=== PATIENT | male | born 1970 | race Hispanic/Latino ===

== ENCOUNTER 2025-08-16 06:24 | Emergency (ER) | payer OTHER ==
[2025-08-16 06:57] LABS: #Basophils 0.05 10x3/uL (0.0-0.2); #Eosinophils 0.13 10x3/uL (0.0-0.5); #Monocytes 0.75 10x3/uL (0.0-1.1); #Neutrophils 5.66 10x3/uL (1.5-8.4); %Basophils 0.7 % (0.0-2.0); %Eosinophils 1.8 % (0.0-6.0); %Lymphocytes 10.6 % (18.0-47.0); %Monocytes 10.1 % (0.0-10.0); %Neutrophils 76.3 % (40.0-75.0); Hematocrit 21.5 % (38.8-50.0); Hemoglobin 6.9 g/dL (13.5-17.5); Mean Corpuscular Hemoglobin 31.7 pg (27.0-33.0); Mean Corpuscular Volume 98.6 fL (81.2-95.1); Platelet Count 199 10x3/uL (150-450); Red Blood Cell (RBC) Count 2.18 10x6/uL (4.32-5.72); White Blood Cell (WBC) Count 7.42 10x3/uL (3.5-10.5)
[2025-08-16 07:20] LABS: INR-International Normal Ratio 1.0; PTT 31.0 sec (22.0-33.0); Prothrombin Time 10.7 sec (9.5-12.1)
[2025-08-16 07:32] LABS: ALT (SGPT) 10 U/L (Less than 45); AST (SGOT) 84 U/L (11-34); Albumin 2.2 g/dL (3.1-4.5); Alkaline Phosphatase 221 U/L (40-110); Anion Gap 16 mmol/L (10-20); BUN (Urea Nitrogen) 56 mg/dL (8.4-25.7); Bilirubin, Total 0.8 mg/dL (0.3-1.2); Calc. Creatinine Clearance 0 mL/min (70-130); Calcium 8.5 mg/dL (7.8-10.44); Carbon Dioxide 25 mmol/L (22-29); Chloride 101 mmol/L (98-107); Globulin 4.1 g/dL (2.4-3.5); Glucose 77 mg/dL (70-105); Potassium 3.9 mmol/L (3.5-5.1); Sodium 138 mmol/L (136-145)
[2025-08-16] MEDS ORDERED: Iopamidol 370 76% 100 ML VIAL ONE (11:02)
== END 2025-08-16 19:46 ==
LOC: CSHERS 06:24
DX: N18.6 End stage renal disease (principal); D63.1 Anemia in chronic kidney disease; D62 Acute posthemorrhagic anemia; Z95.5 Presence of coronary angioplasty implant and graft
CPT/HCPCS: 36430; 73630; 74174; 80053; 85025; 85610; 85730; 86850; 86900; 86901; 86920; 93005; 99285; P9016; 36415; 82274; Q9967